=== PATIENT | female | born 1975 | race Caucasian/White ===

== ENCOUNTER 2020-07-15 18:24 | Emergency (ER) | payer OTHER, SELFPAY ==
--- NOTE | ~2020-07-15 | XR_ITS ---
EXAMINATION: XR CHEST CLINICAL INFORMATION: Cough COMPARISON: None TECHNIQUE: Frontal view of the chest was obtained. FINDINGS: No significant abnormality is noted involving the heart, lungs, mediastinum, bony thorax or soft tissues. XR/XR chest 1V IMPRESSION: Unremarkable examination.
[2020-07-15 20:18] VITALS: BP 106/65; PULSE 104; RESP 18; TEMP 37.3; O2SAT 98; BMI 25.1
--- NOTE | 2020-07-15 20:50 | ED_ITS ---
HPI - URI/Sore Throat General Chief Complaint: Upper Respiratory Symptoms Stated Complaint: flu like Source: patient Mode of arrival: ambulatory Limitations: language barrier History of Present Illness HPI Narrative: 45-year-old female with no significant past medical history presents with several days of upper respiratory symptoms consistent with COVID- 19. MD elicited complaint: fever, cough, sore throat, nasal congestion and sinus pain Onset (ago): day(s) (5) Consistency: constant Severity: moderate Description of mucous: clear and watery Able to tolerate fluids by mouth: Yes Exacerbating factors: exertion Relieving factors: nothing Associated symptoms: fever, chills, myalgias, headache, sore throat and cough Treatments prior to arrival: acetaminophen and ibuprofen Related Data Previous Rx's Medication Instructions Recorded azithromycin 250 mg PO DAILY 5 Days #5 tab 07/15/20 benzonatate [Tessalon Perles] 100 mg PO TID PRN #30 cap 07/15/20 Allergies Allergy/AdvReac Type Severity Reaction Status Date / Time aspirin [ASPIRIN] Allergy Mild HIVES Verified 07/15/20 20:17 Review of Systems Review of Systems: Constitutional: positive Fever, positive Chills, positive fatigue, positive Malaise ENT/Mouth: positive sore throat, positive runny nose Eyes: No Discharge Cardiovascular: No Chest Pain, No SOB Respiratory: Positive Cough, No Sputum, No Wheezing, No Smoke Exposure, No Dyspnea Gastrointestinal: No Nausea, No Vomiting, No Diarrhea Genitourinary: no irregular bleeding, No Dysuria, No Urinary Frequency, No Hematuria, No Urinary Incontinence, No Urgency, No Flank Pain, Musculoskeletal: positive Myalgia Skin: No rash Neuro: No Headache Yes all other systems are reviewed and are negative [facility] Past Medical History Attestation statement: The following information was validated with the patient. Source: old records reviewed Medical History (Updated 07/15/20 @ 22:56 by Thelma Champagne NP) Healthy female adult Social History Social History Alcohol intake: never Smoked in Last 30 Days: No Advance Directives: No Advance Directives Information Provided: Yes Physical Exam Vital Signs: Vital Signs: Last Vital Signs Temp 99.5 F 07/15/20 21:48 Pulse 100 07/15/20 21:48 Resp 20 07/15/20 21:48 BP 114/67 07/15/20 21:48 Pulse Ox 100 07/15/20 21:48 Body Mass Index 25.1 Appearance: Alert. Oriented X3. Moderate distress. Appears tired Eyes: Pupils equal, round and reactive to light. EOMI, sclera nonicteric ENT: Pharynx normal. Tympanic membranes bilaterally intact, nares patent Neck: Normal inspection. Neck supple. No cervical lymphadenopathy CVS: Tachycardic heart rate and rhythm. Pulses normal. Respiratory: No respiratory distress. Lung sounds clear to auscultation all lobes Abdomen: Soft and nontender. Skin: Skin warm and dry. Normal skin color. Normal skin turgor. Extremities: No lower extremity edema. Moves all extremities without difficulty Neuro: No motor deficit. No sensory deficit. Cranial nerves 2-12 intact, gait well balanced well coordinated Course Course Course Narrative: 45-year-old female with no significant past medical history presents with complaints consistent with COVID-19. She is tachycardic, appears pale plan of care is for CBC, Chem 7, chest x-ray and COVID test. CBC indicates anemia at 8.1/27.8, there are no prior values for this patient, patient was advised to follow up with her primary care physician for repeat studies. Refer acute findings requiring emergent intervention, COVID is positive. Detailed description with patient regarding plan of care. Patient verbalized understanding of and agrees to plan of care discharge home. [employer] utilized for all correspondence, Google translate utilized for discharge instructions. MDM - URI/Sore Throat MDM Narrative Medical decision making narrative: COVID-19 Differential Diagnosis Differential diagnosis: Likely upper respiratory infection, otitis media, sinusitis, viral infection, bronchitis, influenza and pharyngitis Medical Records Attestation: I reviewed the patient's medical records. Lab Data Attestation: I reviewed the patient's lab results. Result diagrams: 07/15/20 21:45 07/15/20 21:45 Labs: Lab Results 07/15/20 07/15/20 07/15/20 Range/Units 21:45 21:45 21:45 WBC 5.6 (4.8-10.8) X10*3/uL RBC 4.08 L (4.20-5.50) X10*6/uL Hgb 8.1 L (12.0-16.0) g/dl Hct 27.8 L (37-47) % MCV 68.1 L (80-98) fL MCH 19.9 L (27.0-33.0) pg MCHC 29.1 L (31.0-35.0) g/dl RDW 17.8 H (11.0-16.0) % Plt Count 218 (160-400) X10*3/uL MPV 10.7 (9.4-12.3) fL Immature Gran % (Auto) 0.4 (0.0-0.4) % Neut % (Auto) 55.8 (45-73) % Lymph % (Auto) 29.5 (20-40) % Taney % (Auto) 13.7 H (2-11) % Eos % (Auto) 0.4 (0-4) % Baso % (Auto) 0.2 (0-2) % Lymph # (Auto) 1.6 (1.2-4.9) X10*3/uL Taney # (Auto) 0.8 (0.1-1.2) X10*3/uL Eos # (Auto) 0.0 (0.0-0.4) X10*3/uL Baso # (Auto) 0.0 (0.0-0.2) X10*3/uL Abs Immat Gran (auto) 0.02 (0.00-0.03) X10*3/uL Absolute Neuts (auto) 3.1 (2.0-8.3) X10*3/uL Absolute Nucleated RBC 0.000 (0.0-0.012) X10*3/uL Nucleated RBC % (auto) 0.0 (0.0-0.2) /100WBC Sodium 136 (135-145) mmol/L Potassium 4.9 (3.3-5.1) mmol/L Chloride 106 (96-108) mmol/L Carbon Dioxide 22 (22-29) mmol/L Anion Gap 13 (12-20) BUN 13 (9-16) mg/dL Creatinine 0.76 (0.5-1.4) mg/dL Estim Creat Clear Calc 91.8 Estimated GFR > 60 Random Glucose 101 (60-115) mg/dL Calcium 8.5 (8.4-10.2) mg/dL Magnesium 2.1 (1.6-2.6) mg/dL Coronavirus (PCR) POSITIVE A (Negative) Influenza Type A (PCR) NEGATIVE (Negative) Influenza Type B (PCR) NEGATIVE (Negative) RSV RNA Qual (PCR) NEGATIVE (Negative) Imaging Data Chest x-ray: Attestation: I personally reviewed and interpreted this imaging study as follows: Radiologist's impression: EXAMINATION: XR CHEST CLINICAL INFORMATION: Cough COMPARISON: None TECHNIQUE: Frontal view of the chest was obtained. FINDINGS: No significant abnormality is noted involving the heart, lungs, mediastinum, bony thorax or soft tissues. XR/XR chest 1V IMPRESSION: Unremarkable examination. Discharge Plan Discharge Clinical Impression: COVID-19 Patient Disposition: Home, Self-Care Instructions: COVID-19 (Coronavirus Disease 2019) (ED) Additional Instructions: Te evaluaron para detectar s?ntomas respiratorios superiores. Andres positivo para COVID-19. Por favor, mantenga las directrices de aislamiento social seg?n la regulaci?n estatal y federal. Es grijalva responsabilidad mantener estas directrices. Mila Doce Tylenol y Motrin seg?n sea necesario para el manejo del dolor y la fiebre. Los an?lisis de josh muestran que usted es an?susan con niveles sangu?neos de 8.1/27.8. Debe hacer un seguimiento con el m?dico de atenci?n primaria esta semana para que se repitan los valores sangu?neos. Por favor, utilice albuterol seg?n sea necesario para la tos y la dificultad p rafita respirar. Utilice Tesal?n Perles seg?n sea necesario para la tos. Mila Doce antibi?ticos de azitromicina seg?n las instrucciones. Completa todo el curso de los medicamentos. Silvia por elegir geovani departamento de emergencias para grijalva evaluaci?n. Por favor, poncho un seguimiento con el m?dico de atenci?n primaria seg?n sea necesario. Regrese al servicio de emergencias para cualquier s?ntoma nuevo, preocupante o que empeore. You were evaluated for upper respiratory symptoms. You tested positive for COVID-19. Please maintain social isolation guidelines per State and Federal regulation. It is your responsibility to maintain these guidelines. Take Tylenol and Motrin as needed for pain and fever management. Your blood tests show that you are anemic with blood levels of 8.1/27.8. You need to follow-up with primary care physician this week for repeat blood values. Please use albuterol as needed for cough and shortness of breath. Use Tessalon Perles as needed for cough. Take azithromycin antibiotics as directed. Complete the entire course of medications. Thank you for choosing this emergency department for evaluation. Please follow-up with primary care physician as needed. Return to the emergency department for any new, concerning, or worsening symptoms. Prescriptions: New azithromycin 250 mg tablet 250 mg PO DAILY 5 Days Qty: 5 RF: 0 benzonatate [Tessalon Perles] 100 mg capsule 100 mg PO TID PRN (Reason: cough) Qty: 30 RF: 0 Stand Alone Forms: Work/School Release Interventions: ED Discharge Assessment Last Done: 07/15/20 23:01
[2020-07-15 21:48] VITALS: BP 114/67; PULSE 100; RESP 20; TEMP 37.5; O2SAT 100
[2020-07-15 21:52] LABS: MANUAL DIFF FLAG NO
[2020-07-15 21:55] LABS: Basophils Percent Auto 0.2 % (0-2); Eosinophils Percent Auto 0.4 % (0-4); Hematocrit 27.8 % (37-47); Hemoglobin 8.1 g/dl (12.0-16.0); Imm Gran Abs Auto 0.02 X10*3/uL (0.00-0.03); Imm Gran Pct Auto 0.4 % (0.0-0.4); Lymphocytes Absolute Auto 1.6 X10*3/uL (1.2-4.9); Lymphocytes Percent Auto 29.5 % (20-40); Mean Corpuscular HGB Conc 29.1 g/dl (31.0-35.0); Mean Corpuscular Hemoglobin 19.9 pg (27.0-33.0); Mean Corpuscular Volume 68.1 fL (80-98); Mean Platelet Volume 10.7 fL (9.4-12.3); Monocytes Absolute Auto 0.8 X10*3/uL (0.1-1.2); Monocytes Percent Auto 13.7 % (2-11); Neutrophils Absolute Auto 3.1 X10*3/uL (2.0-8.3); Neutrophils Percent Auto 55.8 % (45-73); Platelet Count 218 X10*3/uL (160-400); Red Blood Count 4.08 X10*6/uL (4.20-5.50); Red Cell Distribution Width 17.8 % (11.0-16.0); White Blood Count 5.6 X10*3/uL (4.8-10.8)
[2020-07-15] MEDS: Acetaminophen 325 MG TABLET 650 MG PO (22:05)
[2020-07-15 22:26] LABS: Anion Gap 13 (12-20); Blood Urea Nitrogen 13 mg/dL (9-16); Calcium 8.5 mg/dL (8.4-10.2); Carbon Dioxide 22 mmol/L (22-29); Chloride 106 mmol/L (96-108); Creatinine Clr Calc Pharmacy 91.8; Estimated Glomerular Filt Rate > 60; Glucose Random 101 mg/dL (60-115); Magnesium 2.1 mg/dL (1.6-2.6); Potassium 4.9 mmol/L (3.3-5.1); Sodium 136 mmol/L (135-145)
[2020-07-15 22:36] LABS: Influenza A PCR NEGATIVE (Negative); Influenza B PCR NEGATIVE (Negative); Resp Syncy Virus RNA Qual PCR NEGATIVE (Negative); SARS COV2 PCR INHOUSE POSITIVE (Negative)
[2020-07-15] MEDS: Albuterol Sulfate 90 MCG 8 GM INHALER 2 PUFF INHALE (23:19)
[2020-07-15] MEDS: Azithromycin 500 MG TABLET PO (23:20)
[2020-07-15] MEDS: Benzonatate 100 MG CAPSULE 200 MG PO (23:20)
--- NOTE | 2020-07-15 23:20 | PC.NURSE ---
patient medicated per order
== END 2020-07-15 23:50 | disposition home or self-care (01) ==
PROVIDERS: Nurse Practitioner Family; Emergency Provider Emergency Medicine
DX: U07.1 COVID-19 (principal)
CPT/HCPCS: 0241U; 36415; 71045; 80048; 83735; 85025; 99284

== ENCOUNTER 2023-09-08 12:47 | Emergency (ER) | payer OTHER, SELFPAY ==
[2023-09-08 13:51] VITALS: BP 135/70; PULSE 100; RESP 19; TEMP 36.6; O2SAT 100; BMI 30.7
--- NOTE | 2023-09-08 13:51 | ED.GENADULT ---
HPI - General Adult General Chief complaint: General Medical Stated complaint: throat infection Time Seen by Provider: 09/08/23 14:27 History of Present Illness HPI narrative: patient complains of sore throat pain for 3 days that is radiating into the left ear, she is able to swallow no trouble breathing but it is painful to swallow She also complains of body aches and fever for the past 3 days She has a mild headache but no stiff neck no dizziness no confusion no nausea no vomiting, headache was gradual onset, no thunderclap There is no cough no sputum no chest pain no shortness of breath there is no abdominal pain nausea vomiting or diarrhea there is no dysuria there is no joint pains there is no skin rash Related Data Previous Rx's ?Medication ?Instructions ?Recorded azithromycin 250 mg tablet 250 mg PO DAILY 5 days #5 tabs 07/15/20 benzonatate 100 mg capsule 100 mg PO TID PRN cough #30 caps 07/15/20 (Alicia Balderas) acetaminophen 500 mg tablet 1,000 mg (2 x 500 mg) PO QID PRN 09/08/23 pain #30 tabs ibuprofen 600 mg tablet 600 mg PO Q6H PRN pain #20 tabs 09/08/23 prednisone 20 mg tablet 40 mg (2 x 20 mg) PO DAILY 2 days 09/08/23 #4 tabs Allergies Allergy/AdvReac Type Severity Reaction Status Date / Time No Known Allergies Allergy Verified 09/08/23 13:52 [facility] Past Medical History Source: nursing notes reviewed Medical History (Updated 09/08/23 @ 15:51 by FREDDY Woodard) Healthy female adult Social History Social History Alcohol intake: never Advance Directives: No Physical Exam ED Vital Signs: Vital Signs - 24 hr 09/08/23 13:51 Temperature 98 F Pulse Rate 100 Respiratory Rate 19 Blood Pressure 135/70 Pulse Oximetry 100 Oxygen Delivery Method Room Air BMI result Body Mass Index 30.7 general appearance is no acute distress Eyes no redness or discharge The ears bilateral tympanic membranes appeared normal, no redness no perforation, canals were patent except for some small amount of wax bilaterally Sinuses were nontender The pharynx had mild erythema and mild tonsillar enlargement no exudate, membranes were moist, voice was normal, no trismus no drooling The neck was supple The chest is clear to auscultation bilateral with full symmetric equal breath sounds Heart no murmur Abdomen soft nontender Extremities full range motion x4 Course Course Course Narrative: This is an RME: Additional HPI, ROS, PE not included below will be deferred to primary provider. 48 year old f presents w/ sore throat w/ radiation to L ear, subjective fevers & chills X 2-3 days. Multiple sick contacts. Just doesnt feel well well-appearing patient with a sore throat is treated with a dose of Decadron and Toradol in the ER, no impairment of breathing or swallowing COVID flu and strep tests were all negative, patient likely has a viral pharyngitis and will be treated symptomatically Medical Decision Making Lab Data MDM Lab Attestation statement: I reviewed the patient's lab results. Labs: Lab Results 09/08/23 Range/Units 14:16 Influenza Type A (PCR) NEGATIVE (Negative) Influenza Type B (PCR) NEGATIVE (Negative) RSV RNA Qual (PCR) NEGATIVE (Negative) SARS-CoV-2 RNA (RT-PCR) NEGATIVE (Negative) S. pyogenes GrpA DIEGO Negative (Negative) Discharge Plan Discharge Clinical Impression: Acute viral pharyngitis Patient Disposition: Home, Self-Care Additional Instructions: testing for COVID flu and strep throat were all negative You likely have a viral sore throat Steroid sometimes help this so we treated with 1 dose in the ER and another dose tomorrow Drink plenty of fluids, breathing steam sometimes helps to relieve symptoms, honey sometimes helps Return any time any worse condition or concerns If not improved next week follow with primary doctor Prescriptions: New acetaminophen 500 mg tablet 1,000 mg PO QID PRN (Reason: pain) Qty: 30 0RF ibuprofen 600 mg tablet 600 mg PO Q6H PRN (Reason: pain) Qty: 20 0RF prednisone 20 mg tablet 40 mg PO DAILY 2 Days Qty: 4 0RF No Action azithromycin 250 mg tablet 250 mg PO DAILY 5 Days Qty: 5 0RF benzonatate [Tessalon Perles] 100 mg capsule 100 mg PO TID PRN (Reason: cough) Qty: 30 0RF Stand Alone Forms: Work/School Release Print Language: Upper Sorbian
[2023-09-08 14:30] LABS: IDNOW Serial# 08D9AD1C; Strep A Nucleic Acid Negative (Negative)
--- NOTE | 2023-09-08 14:32 | ED.GENADULT ---
HPI - General Adult General Chief complaint: General Medical Stated complaint: throat infection Time Seen by Provider: 09/08/23 14:27 Related Data Previous Rx's ?Medication ?Instructions ?Recorded azithromycin 250 mg tablet 250 mg PO DAILY 5 days #5 tabs 07/15/20 benzonatate 100 mg capsule 100 mg PO TID PRN cough #30 caps 07/15/20 (Alicia Balderas) acetaminophen 500 mg tablet 1,000 mg (2 x 500 mg) PO QID PRN 09/08/23 pain #30 tabs ibuprofen 600 mg tablet 600 mg PO Q6H PRN pain #20 tabs 09/08/23 prednisone 20 mg tablet 40 mg (2 x 20 mg) PO DAILY 2 days 09/08/23 #4 tabs Allergies Allergy/AdvReac Type Severity Reaction Status Date / Time No Known Allergies Allergy Verified 09/08/23 13:52 [facility] Past Medical History Medical History (Updated 09/09/23 @ 00:00 by Angela Ledezma) Healthy female adult Social History Social History Alcohol intake: never Advance Directives: No Physical Exam ED Vital Signs: Vital Signs - 24 hr 09/08/23 13:51 Temperature 98 F Pulse Rate 100 Respiratory Rate 19 Blood Pressure 135/70 Pulse Oximetry 100 Oxygen Delivery Method Room Air BMI result Body Mass Index 30.7 Medications Administered Discontinued Medications Generic Name Dose Route Start Last Admin Trade Name Freq PRN Reason Stop Dose Admin Dexamethasone 10 mg 09/08/23 15:44 09/08/23 16:03 Dexamethasone 2 Mg Tablet PO 09/08/23 15:45 10 mg ONCE ONE Administration Ketorolac Tromethamine 30 mg 09/08/23 15:44 09/08/23 16:04 Ketorolac Tromethamine 30 Mg/Ml Vial IM 09/08/23 15:45 30 mg ONCE ONE Administration Medical Decision Making Lab Data Labs: Lab Results 09/08/23 Range/Units 14:16 Influenza Type A (PCR) NEGATIVE (Negative) Influenza Type B (PCR) NEGATIVE (Negative) RSV RNA Qual (PCR) NEGATIVE (Negative) SARS-CoV-2 RNA (RT-PCR) NEGATIVE (Negative) S. pyogenes GrpA DIEGO Negative (Negative) Discharge Plan Discharge Clinical Impression: Acute viral pharyngitis Patient Disposition: Home, Self-Care Additional Instructions: testing for COVID flu and strep throat were all negative You likely have a viral sore throat Steroid sometimes help this so we treated with 1 dose in the ER and another dose tomorrow Drink plenty of fluids, breathing steam sometimes helps to relieve symptoms, honey sometimes helps Return any time any worse condition or concerns If not improved next week follow with primary doctor Prescriptions: New acetaminophen 500 mg tablet 1,000 mg PO QID PRN (Reason: pain) Qty: 30 0RF ibuprofen 600 mg tablet 600 mg PO Q6H PRN (Reason: pain) Qty: 20 0RF prednisone 20 mg tablet 40 mg PO DAILY 2 Days Qty: 4 0RF No Action azithromycin 250 mg tablet 250 mg PO DAILY 5 Days Qty: 5 0RF benzonatate [Tessalon Perles] 100 mg capsule 100 mg PO TID PRN (Reason: cough) Qty: 30 0RF Stand Alone Forms: Work/School Release Discharge Date/Time: 09/08/23 16:08 Print Language: Slovenian
[2023-09-08 15:04] LABS: Influenza A PCR NEGATIVE (Negative); Influenza B PCR NEGATIVE (Negative); Resp Syncy Virus RNA Qual PCR NEGATIVE (Negative); SARS COV2 PCR INHOUSE NEGATIVE (Negative)
[2023-09-08] MEDS: dexAMETHasone 2 MG TABLET 10 MG PO (16:03)
[2023-09-08] MEDS: Ketorolac Tromethamine 30 MG/ML VIAL IM (16:04)
--- NOTE | 2023-09-08 16:08 | PC.NURSE ---
discharged by provider
== END 2023-09-08 16:08 | disposition home or self-care (01) ==
PROVIDERS: Physician Assistant; Emergency Provider Emergency Medicine
DX: J02.8 Acute pharyngitis due to other specified organisms (principal)
CPT/HCPCS: 0241U; 87651; 96372; 99282; 99284; J1885; J8540